=== PATIENT | female | born 1990 ===

== ENCOUNTER 2017-04-30 15:41 | Emergency (ER) | payer SELFPAY ==
[2017-05-01 10:11] LABS: SQUAMOUS EPITHIAL 15 /hpf (0-5); URINE BACTERIA FEW (<OCC); URINE BILIRUBIN NEGATIVE (NEGATIVE); URINE BLOOD NEGATIVE (NEGATIVE); URINE CLARITY Hazy (Clear); URINE COLOR Yellow (YELLOW); URINE GLUCOSE (UA) NORMAL (Normal); URINE LEUKOCYTE ESTERASE 3+ Leu/uL (Negative); URINE NITRATE NEGATIVE (NEGATIVE); URINE PROTEIN NEGATIVE (NEGATIVE); URINE UROBILINOGEN NORMAL mg/dL (0.2-1.0)
== END 2017-04-30 18:10 | disposition home or self-care (01) ==
LOC: C.ER 15:41
DX: N39.0 Urinary tract infection, site not specified (principal); M54.5 Low back pain

== ENCOUNTER 2017-10-04 08:58 | Emergency (ER) | payer OTHER ==
[2017-10-04] MEDS ORDERED: Lidocaine 5% Patch TD STA (09:33)
[2017-10-04] MEDS ORDERED: Lidocaine 5% Patch TD ONE (09:43)
[2017-10-04 10:02] LABS: RBC URINE 2 /hpf (0-3); URINE BACTERIA MANY (<OCC); URINE BILIRUBIN NEGATIVE (NEGATIVE); URINE BLOOD 1+ (NEGATIVE); URINE COLOR Yellow (YELLOW); URINE GLUCOSE (UA) NORMAL (Normal); URINE KETONE NEGATIVE (NEGATIVE); URINE LEUKOCYTE ESTERASE 3+ Leu/uL (Negative); URINE PROTEIN NEGATIVE (NEGATIVE); URINE UROBILINOGEN NORMAL mg/dL (0.2-1.0); WBC URINE 2 /hpf (0-5)
--- NOTE | 2017-10-04 10:19 | C.PDOC ---
History Of Present Illness 27yo female, with no past medical history, presents to the ED for evaluation of lower back pain, radiating to her right leg for the past day. Patient denies any trauma, heavy lifting recently. She does report she was seen a few months back for similar symptoms and was treated for a UTI. She reports her current pain is dull, constant and increased with movement. She denies any fever, chills , abdominal pain, dysuria, hematuria. No other medical complaints. Time Seen by Provider: 10/04/17 09:29 Chief Complaint (Nursing): Back Pain History Per: Patient History/Exam Limitations: no limitations Onset/Duration Of Symptoms: Days Current Symptoms Are (Timing): Still Present Quality Of Discomfort: Dull, "Pain" Previous Symptoms: Back Pain Associated Symptoms: None Exacerbating Factor(s): Movement Past Medical History Reviewed: Historical Data, Nursing Documentation, Vital Signs Vital Signs: Last Vital Signs Temp 97.7 F 10/04/17 10:50 Pulse 51 L 10/04/17 10:50 Resp 18 10/04/17 10:50 BP 97/61 L 10/04/17 10:50 Pulse Ox 100 10/04/17 10:50 - Medical History PMH: No Chronic Diseases Surgical History: No Surg Hx Family History: States: No Known Family Hx - Social History Hx Alcohol Use: No Hx Substance Use: No - Immunization History Hx Tetanus Toxoid Vaccination: No Hx Influenza Vaccination: No Hx Pneumococcal Vaccination: No Review Of Systems Constitutional: Negative for: Fever, Chills Gastrointestinal: Negative for: Abdominal Pain Genitourinary: Negative for: Dysuria, Hematuria Musculoskeletal: Positive for: Back Pain, Leg Pain (right leg pain, radiating from back.) Neurological: Negative for: Weakness, Numbness Physical Exam - Physical Exam Appears: Non-toxic, No Acute Distress (patient is uncomfortable) Neck: Normal Cardiovascular: Rhythm Regular Respiratory: Normal Breath Sounds Gastrointestinal/Abdominal: Soft, No Tenderness Back: Normal Inspection, No Vertebral Tenderness, No Paraspinal Tenderness Extremity: Normal ROM, No Deformity, No Swelling Neurological/Psych: Oriented x3, Normal Speech, Normal Cognition Gait: Steady ED Course And Treatment O2 Sat by Pulse Oximetry: 99 (RA) Pulse Ox Interpretation: Normal Progress Note: Patient given Motrin, Valium and Lidoderm patch for pain relief. Reevaluation at 10:18 and patient states she is still in pain. Disposition Counseled Patient/Family Regarding: Diagnosis, Need For Followup, Rx Given - Disposition Referrals: [facility] [Outside] Disposition: HOME/ ROUTINE Disposition Time: 11:02 Condition: STABLE Forms: Gen Discharge Inst Niuean, [facility] (Niuean), Work Excuse - POA Present On Arrival: None - Clinical Impression Clinical Impression: Low back pain - Scribe Statement The provider has reviewed the documentation as recorded by the Rhiannon De Santiago Provider Attestation: All medical record entries made by the Rhiannon were at my direction and personally dictated by me. I have reviewed the chart and agree that the record accurately reflects my personal performance of the history, physical exam, medical decision making, and the department course for this patient. I have also personally directed, reviewed, and agree with the discharge instructions and disposition. Addendum Addendum: 10/04/17 11:01 27 y/o female seen with FP resident. back pain, radiating down LE. normal exam pain management given. patient feeling better, will d/c home with f/u
[2017-10-04 10:51] VITALS: BP 97/61; PULSE 51; RESP 18; TEMP 97.7
[2017-10-04 11:03] VITALS: O2SAT 99
== END 2017-10-04 11:16 | disposition home or self-care (01) ==
LOC: C.ER 08:58
DX: M54.5 Low back pain (principal)